=== PATIENT | male | born 1955 | race Caucasian/White ===

== ENCOUNTER → 2017-09-12 | Outpatient (CLI) | payer BC ==
--- NOTE | 2017-09-12 21:17 | RAD ---
EXAM DESCRIPTION: Chest,2 Views CLINICAL HISTORY: pneumonia COMPARISON: None available. FINDINGS: Frontal and lateral views of the chest. Cardiac silhouette and pulmonary vascularity are within normal limits. Calcific atherosclerosis noted of the aortic arch. Lung volumes are shallow with associated bronchovascular crowding. Lungs are clear without focal consolidative infiltrates. Bilateral costophrenic angles are sharp. No pneumothorax. IMPRESSION: No radiographic evidence of acute cardiopulmonary disease. Electronically signed by: Primo Singh MD 09/12/2017 3:44 PM [employer]OTOENG[employer]ING AP[employer]ENTICE
== END | disposition home or self-care (01) ==
LOC: RAD 14:34
PROVIDERS: ATTEND Nurse Practitioner Family
DX: J18.9 Pneumonia, unspecified organism (principal)